=== PATIENT | female | born 1995 | race African-American/Black ===

== ENCOUNTER 2017-10-19 14:48 | Emergency (ER) | payer SELFPAY ==
[~2017-10-19] VITALS: Ht 165.1 cm; Wt 93.0 kg
[~2017-10-19 14:48] MED LIST: DIFL150T PO; LOW-TAB2 PO
[2017-10-19 14:51] VITALS: BP 133/79; PULSE 101; RESP 14; TEMP 98.7; O2SAT 100
[2017-10-19] MEDS ORDERED: IBUP1TAB7 PO (15:49)
--- NOTE | 2017-10-19 15:50 | PD ---
HPI Chief Complaint: Musculoskeletal Complaint Time Seen by Provider: 15:40 Travel History International Travel<30 days: No Contact w/Intl Traveler<30days: No Traveled to known affect area: No History of Present Illness HPI 22-year-old female presents emergency Department with complaint of left wrist pain that radiates to her left hand times one week. Denies injury. Reports typing 8 hours a day at her job. Reports occasional numbness and tingling to the first, second, third fingers. Denies fever, vomiting. Denies decreased range of motion, decreased strength to the affected extremity. Has not taken any medication or tried any treatments to alleviate her symptoms. Symptoms are worse at night. Symptoms are aggravated while typing at work also. No known relieving factors. Rates pain 8/10. Stabbing sensation. The primary care provider no known allergies. Denies significant past medical history. Has no other medical complaints. No other modifying factors or associated signs and symptoms. PFSH Past Medical History Immunizations Current: Yes ?: Not Social History Alcohol Use: No Tobacco Use: No Substance Use: No Allergies-Medications (Allergen,Severity, Reaction): Coded Allergies: No Known Allergies (Unverified Adverse Reaction, Unknown, 10/19/17) Reported Meds & Prescriptions Reported Meds & Active Scripts Active Ibuprofen 800 Mg Tab 800 Mg PO Q6HR PRN Diflucan 150 mg (Fluconazole) 150 Mg Tab 150 Mg PO TODAY Low-Ogestrel (Ethinyl Estradiol/Norgestrel) 28 Tab Pack 1 Tab PO DAILY Review of Systems Except as stated in HPI: all other systems reviewed are Neg Physical Exam Narrative GENERAL: Well-nourished, well-developed black female patient, in no acute distress SKIN: Warm and dry. HEAD: Atraumatic. Normocephalic. EYES: Pupils equal and round. No scleral icterus. No injection or drainage. ENT: Mucosa pink and moist. Airway patent. NECK: Trachea midline. CARDIOVASCULAR: Regular rate. RESPIRATORY: No accessory muscle use. GASTROINTESTINAL: Rounded. MUSCULOSKELETAL: Left wrist with tenderness on palpation; without erythema, edema, ecchymosis; full range of motion; all fingers with full range of motion and mortgage broker strength; sensory intact; 2+ radial pulse. Left upper extremity is supple and non-tense and 2+ radial pulse and sensory intact without erythema or edema. No obvious deformities. No clubbing. No cyanosis. NEUROLOGICAL: Awake and alert. Oriented 3. No obvious cranial nerve deficits. Motor grossly within normal limits. Normal speech. PSYCHIATRIC: Appropriate mood and affect; insight and judgment normal. Data Data Last Documented VS Vital Signs Date Time Temp Pulse Resp B/P (MAP) Pulse Ox O2 Delivery O2 Flow Rate FiO2 10/19/17 14:51 98.7 101 14 133/79 (97) 100 Room Air Orders Orders Ed Discharge Order (10/19/17 15:50) Splint Or Brace Apply/Monitor (10/19/17 15:50) [facility] Medical Decision Making Medical Screen Exam Complete: Yes Emergency Medical Condition: Yes Medical Record Reviewed: Yes Differential Diagnosis Carpal tunnel syndrome, wrist pain, medical clearance Narrative Course 22-year-old female with left wrist pain. Denies injury. I do not suspect fracture dislocation feel imaging is not necessary. Suspecting carpal tunnel syndrome. Ibuprofen and left wrist splint ordered. Instructed patient to follow up with hand surgeon. Instructed patient to follow up with primary care provider. Patient verbalizes understanding and agreement with treatment plan. Patient is medically cleared and stable for discharge. Discussed reasons to return to the emergency department. Patient agrees with treatment plan. The patients vital signs are stable and the patient is stable for outpatient follow- up and treatment. Patient discharged home, stable and in no acute distress. Diagnosis Primary Impression: Left wrist pain Referrals: Hand Surgeon Primary Care Physician Patient Instructions: Carpal Tunnel Syndrome (GEN), General Instructions Departure Forms: Tests/Procedures, Work Release Enter return to work date: Oct 20, 2017 Additional Instructions: Wrist splint for support; can use at night while sleeping Avoid sleeping on your hands to help ease pain and numbness in your wrist and hand Rotate your wrist and stretch your palms and fingers Take a pain reliever, such as Advil, Motrin, ibuprofen, Aleve as needed and as directed Follow-up with primary care provider Follow-up with hand surgeon as needed Return to the emergency department immediately with worsening of symptoms Med/Other Pt SpecificInfo: Prescription(s) given Scripts Ibuprofen (Ibuprofen) 800 Mg Tab 800 MG PO Q6HR Y for PAIN, #30 TAB 0 Refills Prov: Renetta Magana 10/19/17 Disposition: 01 DISCHARGE HOME Condition: Stable Renetta Magana Oct 19, 2017 15:50
== END 2017-10-19 16:02 | disposition home or self-care (01) ==
LOC: NEPK 14:48
DX: M25.532 Pain in left wrist (principal); R20.0 Anesthesia of skin; R20.2 Paresthesia of skin
CPT/HCPCS: 99283; L3908